=== PATIENT | female | born 1985 | race American Indian/Alaskan Native ===

== ENCOUNTER 2018-11-20 13:13 | Emergency (ER) | payer OTHER ==
[2018-11-20 13:24] VITALS: BP 115/59
[2018-11-20] MEDS ORDERED: DECADRON IM ONE (13:27)
[2018-11-20] MEDS ORDERED: MOTRIN PO ONE (13:27)
--- NOTE | 2018-11-20 13:27 | Emergency Department Report ---
Chief Complaint: Sore Throat Stated Complaint: SORE THROAT/CHEST TIGHT Time Seen by Provider: 11/20/18 13:25 - HPI History of Present Illness: SORE THROAT RX NONE PMH NONE LMP END LAST MONTH PSH NONE ABC INTACT VSS MSE COMPLETE - Exam Vital Signs: Vital Signs 11/20/18 13:22 Temperature 99.1 F Pulse Rate 105 H Respiratory 16 Rate Blood Pressure 115/59 [Right] O2 Sat by Pulse 99 Oximetry MSE screening note: Focused history and physical exam performed. Due to findings the following was ordered: ED Disposition for MSE Condition: Stable
--- NOTE | 2018-11-20 14:41 | Emergency Department Report ---
ED ENT HPI - General Chief complaint: Sore Throat Stated complaint: SORE THROAT/CHEST TIGHT Time Seen by Provider: 11/20/18 13:25 Source: patient Mode of arrival: Ambulatory Limitations: No Limitations - History of Present Illness Initial comments: This is a 33-year-old female presents with a sore throat and difficulty swallowing for 3 days. Patient states symptoms are similar to the past when she was diagnosed with strep throat. Also complains of chills. She denies cough, chest pain, shortness of breath, wheeze, myalgias, or rhinorrhea. MD complaint: sore throat, difficulty swallowing Onset/Timin -: days(s) Location: throat Severity: moderate Severity scale (0 -10): 8 Quality: aching Consistency: constant Improves with: none Worsens with: swallowing, eating Associated Symptoms: fever, pain with swallowing, sore throat. denies: cough, gum swelling, toothache, tinnitus, hearing loss, discharge from ear, rhinorrhea - Related Data Previous Rx's Medication Instructions Recorded Last Taken Type Ibuprofen [Motrin 800 MG tab] 800 mg PO Q8HR PRN #20 tablet 11/20/18 Unknown Rx Prednisone [predniSONE 10 mg 10 mg PO .TAPER #1 tab.ds.pk 11/20/18 Unknown Rx (6-Day Pack, 21 Tabs)] Allergies Allergy/AdvReac Type Severity Reaction Status Date / Time No Known Allergies Allergy Verified 11/20/18 14:01 ED Dental HPI - General Chief complaint: Sore Throat Stated complaint: SORE THROAT/CHEST TIGHT Time Seen by Provider: 11/20/18 13:25 Source: patient Mode of arrival: Ambulatory Limitations: No Limitations - Related Data Previous Rx's Medication Instructions Recorded Last Taken Type Ibuprofen [Motrin 800 MG tab] 800 mg PO Q8HR PRN #20 tablet 11/20/18 Unknown Rx Prednisone [predniSONE 10 mg 10 mg PO .TAPER #1 tab.ds.pk 11/20/18 Unknown Rx (6-Day Pack, 21 Tabs)] Allergies Allergy/AdvReac Type Severity Reaction Status Date / Time No Known Allergies Allergy Verified 11/20/18 14:01 ED Review of Systems ROS: Stated complaint: SORE THROAT/CHEST TIGHT Other details as noted in HPI Constitutional: denies: chills, fever ENT: throat pain. denies: ear pain Respiratory: denies: cough, shortness of breath, wheezing Cardiovascular: denies: chest pain, palpitations Gastrointestinal: denies: abdominal pain, nausea, diarrhea Skin: denies: rash, lesions Neurological: denies: headache, weakness, paresthesias Psychiatric: denies: anxiety, depression ED Past Medical Hx - Past Medical History Previous Medical History?: No - Surgical History Past Surgical History?: No - Social History Smoking Status: Current Every Day Smoker Substance Use Type: Alcohol - Medications Home Medications: Home Medications Medication Instructions Recorded Confirmed Last Taken Type Ibuprofen [Motrin 800 MG tab] 800 mg PO Q8HR PRN #20 tablet 11/20/18 Unknown Rx Prednisone [predniSONE 10 mg 10 mg PO .TAPER #1 tab.ds.pk 11/20/18 Unknown Rx (6-Day Pack, 21 Tabs)] ED Physical Exam - General Limitations: No Limitations General appearance: alert, in no apparent distress, obese - Neck Neck exam: Present: full ROM, lymphadenopathy (anterior cervical lymphadenopathy, tenderness, mobile). Absent: tenderness, meningismus, thyromegaly - Respiratory Respiratory exam: Present: normal lung sounds bilaterally. Absent: respiratory distress - Cardiovascular Cardiovascular Exam: Present: regular rate, normal rhythm. Absent: systolic murmur, diastolic murmur, rubs, gallop - GI/Abdominal GI/Abdominal exam: Present: soft, normal bowel sounds - Neurological Exam Neurological exam: Present: alert, oriented X3 - Psychiatric Psychiatric exam: Present: normal affect, normal mood - Skin Skin exam: Present: warm, dry, intact, normal color. Absent: rash ED Course Vital Signs 11/20/18 11/20/18 13:22 13:26 Temperature 99.1 F 99.1 F Pulse Rate 105 H 107 H Respiratory 16 16 Rate Blood Pressure 115/59 Blood Pressure 115/59 [Right] O2 Sat by Pulse 99 98 Oximetry ED Medical Decision Making - Lab Data Lab Results 11/20/18 Range/Units Unknown Group A Strep Rapid Negative (Negative) - Medical Decision Making This is a 33 y.o. female that presents with sore throat x 3 days. Patient examined by me and stable. No distress noted. Rapid strep obtained and negative. Center score of 3 points. Vitals stable. Given dexamethasone 8 mg IM once in ER. Start prednisone taper and ibuprofen for acute pharyngitis. Take Tylenol or ibuprofen for pain. Discussed plan with patient and he agreed with plan to treat outpatient. Discharged home. Return to work tomorrow. Follow up with PCP in 48- 72 hours. Critical care attestation.: If time is entered above; I have spent that time in minutes in the direct care of this critically ill patient, excluding procedure time. ED Disposition Clinical Impression: Sore throat Acute pharyngitis Qualifiers: Pharyngitis/tonsillitis etiology: unspecified etiology Qualified Code(s): J02.9 - Acute pharyngitis, unspecified Disposition: TO HOME OR SELFCARE Is pt being admited?: No Does the pt Need Aspirin: No Condition: Stable Instructions: Pharyngitis (ED) Additional Instructions: Expect symptoms to improve within 3 or 4 days. There is no need for bed rest or isolation. Use Tylenol or ibuprofen for symptoms of sore throat, headache, and fever. Follow up with Primary Care Provider in 48-72 hours. Prescriptions: Ibuprofen [Motrin 800 MG tab] 800 mg PO Q8HR PRN #20 tablet PRN Reason: Pain , Severe (7-10) Prednisone [predniSONE 10 mg (6-Day Pack, 21 Tabs)] 10 mg PO .TAPER #1 tab.ds.pk Referrals: RAJI DIAZ MD [Primary Care Provider] - 3-5 Days [facility] [Outside] - 3-5 Days [facility] [Outside] - 3-5 Days Forms: Work/School Release Form(ED) Time of Disposition: 14:43
== END 2018-11-20 14:53 | disposition home or self-care (01) ==
LOC: ED 13:13
DX: J02.9 Acute pharyngitis, unspecified (principal); F17.200 Nicotine dependence, unspecified, uncomplicated
CPT/HCPCS: 87116; 87430; 96372; 99283; J1100